=== PATIENT | male | born 1950 ===

== ENCOUNTER 2016-07-09 10:57 | Emergency (ER) | payer OTHER, MEDICAID ==
[2016-07-09 11:08] VITALS: TEMP 97.9; O2SAT 96
[2016-07-09 11:09] VITALS: BMI 27.4
--- NOTE | 2016-07-09 11:33 | ED PDOC ---
Arrival/HPI - General Chief Complaint: Chest Pain Time Seen by Provider: 07/09/16 11:03 Historian: Patient - History of Present Illness Narrative History of Present Illness (Text): 07/09/16 11:16 A 66 year old male presents to the emergency department complaining of a facial droop for the past 2 days. Patient reports he woke up with the symptoms 2 days ago. He also complaining of intermittent chest pain that has been present for "awhile now." He denies any extremity weakness, speech change, fever, shortness of breath, or any other complaints at this time. HPI and ROS limited because patient is a poor historian. PMD: Dr. Marrero Time/Duration: Other (2 days) Symptom Onset: Sudden Symptom Course: Unchanged Quality: Other Activities at Onset: Rest Context: Home Past Medical History - Provider Review Nursing Documentation Reviewed: Yes - Cardiac Hx Hypertension: Yes - Gastrointestinal Hx Gastrointestinal Disorders: Yes Hx Gastroesophageal Reflux: Yes - Psychiatric Hx Psychophysiologic Disorder: Yes Hx Depression: Yes Hx Substance Use: No - Surgical History Other/Comment: colon resection - Anesthesia Hx Anesthesia: Yes Hx Anesthesia Reactions: No Hx Malignant Hyperthermia: No Family/Social History - Physician Review Nursing Documentation Reviewed: Yes Family/Social History: Unknown Family HX Smoking Status: Heavy Smoker > 10 Cigarettes Daily Hx Alcohol Use: Yes Frequency of alcohol use: Daily Hx Substance Use: No Allergies/Home Meds Allergies/Adverse Reactions: Allergies No Known Allergies Allergy (Verified 07/09/16 11:08) Home Medications: Home Meds Medication Instructions Recorded Confirmed Docusate [Colace] 100 mg PO BID PRN 07/09/16 07/09/16 Lisinopril [Zestril] 2.5 mg PO DAILY 07/09/16 07/09/16 Loperamide HCl [Loperamide HCl] 2 mg PO DAILY PRN 07/09/16 07/09/16 Naproxen [Naprosyn] 500 mg PO BID 07/09/16 07/09/16 Omeprazole 40 mg PO DAILY 07/09/16 07/09/16 Ranitidine HCl [Sunmark Acid 150 mg PO BID 07/09/16 07/09/16 [place]] buPROPion XL [Wellbutrin] 150 mg PO DAILY 07/09/16 07/09/16 Review of Systems - Review of Systems Systems not reviewed;Unavailable: Other (poor historian) Constitutional: absent: Fevers Respiratory: absent: SOB Cardiovascular: Chest Pain Neurological: Facial Droop. absent: Focal Weakness, Speech Changes Physical Exam Vital Signs Reviewed: Yes Vital Signs Temp Pulse Pulse Resp BP BP Pulse Ox 07/09/16 12:17 77 20 107/73 96 07/09/16 11:25 75 149/105 H 07/09/16 11:07 97.9 F 79 18 149/105 H 96 Temperature: Afebrile Blood Pressure: Hypertensive Pulse: Regular Respiratory Rate: Normal Appearance: Positive for: Well-Appearing, Non-Toxic, Comfortable Pain Distress: None Mental Status: Positive for: Alert and Oriented X 3 - Systems Exam Head: Present: Atraumatic, Normocephalic Pupils: Present: PERRL Extroacular Muscles: Present: EOMI Conjunctiva: Present: Normal Ears: Present: Normal, Other (no vesicles in ears) Mouth: Present: Moist Mucous Membranes Neck: Present: Normal Range of Motion Respiratory/Chest: Present: Clear to Auscultation, Good Air Exchange. No: Respiratory Distress, Accessory Muscle Use Cardiovascular: Present: Regular Rate and Rhythm, Normal S1, S2. No: Murmurs Abdomen: Present: Normal Bowel Sounds. No: Tenderness, Distention, Peritoneal Signs Back: Present: Normal Inspection Upper Extremity: Present: Normal Inspection. No: Cyanosis, Edema Lower Extremity: Present: Normal Inspection. No: Edema Neurological: Present: GCS=15, CN II-XII Intact, Speech Normal, Motor Func Grossly Intact, Normal Sensory Function, Other (right sided facial droop with forehead sparing) Skin: Present: Warm, Dry, Normal Color. No: Rashes Psychiatric: Present: Alert, Oriented x 3, Normal Insight, Normal Concentration Medical Decision Making ED Course and Treatment: 07/09/16 11:16 Impression: A 66 year old male with a right sided facial droop. Differential Diagnosis include but are not limited to: ACS vs. kelley's palsy Plan: -- EKG -- Chest X-ray -- Labs -- Urinalysis -- Zovirax and prednisone -- Reassess and disposition Progress Notes: EKG: Ordered, reviewed, and independently interpreted the EKG. Rate : 76 BPM Rhythm : NSR Interpretation : No ST-segment elevations or depressions, no T-wave inversions, normal intervals. Comparison : No previous EKG for comparison. 07/09/16 12:17 Chest X-ray: Creator : Eder aCge MD COMPARISON: No prior. FINDINGS: LUNGS: No active pulmonary disease. PLEURA: No significant pleural effusion identified, no pneumothorax apparent. CARDIOVASCULAR: Normal. OSSEOUS STRUCTURES: No significant abnormalities. VISUALIZED UPPER ABDOMEN: Normal. OTHER FINDINGS: None. IMPRESSION: No active disease. 07/09/16 12:39 pt reassessed. pain free in er. pt in er primarily for eval of facial droop, also c/o of chest pain "for a while". ekg no changes, trop neg. pt asking for discharge. does not wish for observation in hospital. states "i am ready to go home". no weakness, only noted right sided facial droop. exam consistent with bells. 07/09/16 12:42 pt instructed about opthalmic ointment to use. - Lab Interpretations Lab Results: 07/09/16 11:45 07/09/16 11:45 Lab Results 07/09/16 11:45: WBC 7.7, RBC 4.16, Hgb 14.6, Hct 41.5 L, MCV 99.8, MCH 35.1 H, MCHC 35.2, RDW 13.5, Plt Count 248, MPV 9.8, Gran % 59.6, Lymph % (Auto) 26.6, [place] % (Auto) 8.6 H, Eos % (Auto) 4.9, Baso % (Auto) 0.3, Gran # 4.60, Lymph # 2.1, [place] # 0.7 H, Eos # 0.4, Baso # 0.02, PT 10.2, INR 0.94, APTT 27.4, Sodium 135, Potassium 4.2, Chloride 102, Carbon Dioxide 26, Anion Gap 11, BUN 14, Creatinine 0.8, Est GFR ( Amer) > 60, Est GFR (Non-Af Amer) > 60, Random Glucose 101, Calcium 8.8, Magnesium 1.7, Total Bilirubin 0.5, AST 22, ALT 32, Alkaline Phosphatase 57, Lactate Dehydrogenase 320 L, Total Creatine Kinase 115 , Troponin I < 0.01, Total Protein 7.4, Albumin 3.8, Globulin 3.6, Albumin/ Globulin Ratio 1.1 I have reviewed the lab results: Yes - RAD Interpretation Radiology Orders: 07/09/16 11:22 CHEST PORTABLE [RAD] Stat - Medication Orders Current Medication Orders: Discontinued Medications Acyclovir (Zovirax) 400 mg PO STAT STA PRN Reason: Protocol Stop: 07/09/16 11:24 Last Admin: 07/09/16 11:40 Dose: 400 MG Prednisone (Prednisone Tab) 50 mg PO STAT STA Stop: 07/09/16 11:24 Last Admin: 07/09/16 11:39 Dose: 50 MG - Scribe Statement The provider has reviewed the documentation as recorded by the Lonibe Abby Harrison Provider Scribe Attestation: All medical record entries made by the Lonibe were at my direction and personally dictated by me. I have reviewed the chart and agree that the record accurately reflects my personal performance of the history, physical exam, medical decision making, and the department course for this patient. I have also personally directed, reviewed, and agree with the discharge instructions and disposition. Disposition/Present on Arrival - Present on Arrival Any Indicators Present on Arrival: No History of DVT/PE: No History of Uncontrolled Diabetes: No Urinary Catheter: No History of Decub. Ulcer: No History Surgical Site Infection Following: None - Disposition Have Diagnosis and Disposition been Completed?: Yes Diagnosis: Kelley's palsy, Chest pain Disposition: HOME/ ROUTINE Disposition Time: 12:41 Patient Problems: Current Active Problems Problem Status Diagnosed Kelley's palsy Acute Chest pain Acute Condition: STABLE Discharge Instructions (ExitCare): Chest Pain (ED), Kelley Palsy (ED) Additional Instructions: please follow up with specialists. return to er with worsening symptoms or concerns. Prescriptions: Prednisone 50 mg PO DAILY #5 tab Acyclovir [Zovirax] 400 mg PO 5XD #35 tab Referrals: Hebert Marrero MD [Primary Care Provider] - Follow up with primary
[2016-07-09 11:56] LABS: ADD MANUAL DIFF? NO
[2016-07-09 12:09] LABS: ALB/GLOB RATIO 1.1 (1.1-1.8); ALKALINE PHOSPHATASE 57 U/L (38-133); ALT/SGPT 32 U/L (7-56); AST/SGOT 22 U/L (15-59); BILIRUBIN,TOTAL 0.5 mg/dL (0.2-1.3); BLOOD UREA NITROGEN 14 mg/dL (7-21); CALCIUM 8.8 mg/dL (8.4-10.5); CARBON DIOXIDE 26 mmol/L (21-33); CHLORIDE 102 mmol/L (98-107); GFR AFRICAN-AMERICAN > 60; GLUCOSE,RANDOM 101 mg/dL (70-110); MAGNESIUM 1.7 mg/dL (1.7-2.2); POTASSIUM 4.2 mmol/L (3.6-5.0); SODIUM 135 mmol/L (132-148); TOTAL PROTEIN 7.4 g/dL (5.8-8.3)
[2016-07-09 12:12] LABS: BASO # 0.02 K/mm3 (0.0-2.0); BASO % 0.3 % (0.0-3.0); EOS # 0.4 (0.0-0.7); EOS % 4.9 % (1.5-5.0); GRAN % 59.6 % (50.0-68.0); HEMATOCRIT 41.5 % (42.0-52.0); LYMPH # 2.1 (1.2-3.4); LYMPH % 26.6 % (22.0-35.0); MEAN CELL VOLUME 99.8 fL (80.0-105.0); MEAN CORPUSCULAR HEMOGLOBIN 35.1 pg (25.0-35.0); MEAN CORPUSCULAR HGB CONC 35.2 g/dl (31.0-37.0); MEAN PLATELET VOLUME 9.8 fl (7.0-11.0); MONO # 0.7 (0.1-0.6); MONO % 8.6 % (1.0-6.0); PLATELET COUNT 248 10^3/uL (120.0-450.0); RED CELL DISTRIBUTION WIDTH 13.5 % (11.5-14.5); WHITE BLOOD COUNT 7.7 10^3/ul (4.5-11.0)
[2016-07-09 12:17] VITALS: BP 107/73; PULSE 77; RESP 20
--- NOTE | 2016-07-09 12:17 | RAD ---
HISTORY: cp COMPARISON: No prior. FINDINGS: LUNGS: No active pulmonary disease. PLEURA: No significant pleural effusion identified, no pneumothorax apparent. CARDIOVASCULAR: Normal. OSSEOUS STRUCTURES: No significant abnormalities. VISUALIZED UPPER ABDOMEN: Normal. OTHER FINDINGS: None. IMPRESSION: No active disease.
[2016-07-09 12:22] LABS: TROPONIN I < 0.01 ng/mL
[2016-07-09 12:30] LABS: INR 0.94 (0.93-1.08); PARTIAL THROMBOPLASTIN TIME 27.4 Seconds (23.7-30.8)
--- NOTE | 2016-07-09 13:41 | CARD ---
APPROVED REPORT EKG Measurement Heart [id number] <Conclusion> Normal sinus rhythm Normal ECG
== END 2016-07-09 12:46 | disposition home or self-care (01) ==
LOC: MERGE 10:57 → ED 10:57
DX: G51.0 Bell's palsy (principal); R07.9 Chest pain, unspecified; I10 Essential (primary) hypertension; K21.9 Gastro-esophageal reflux disease without esophagitis; F17.210 Nicotine dependence, cigarettes, uncomplicated
CPT/HCPCS: 71010; 80053; 82550; 83615; 83735; 84484; 85025; 85610; 85730; 93005; 99283; J8499

== ENCOUNTER 2017-07-25 09:29 | Emergency (ER) | payer MEDICAID, OTHER ==
[2017-07-25 10:14] VITALS: BMI 30.7
[2017-07-25 10:19] VITALS: RESP 18; TEMP 97.5
[2017-07-25] MEDS ORDERED: Iohexol 240 (50 ml) ONE (10:34)
--- NOTE | 2017-07-25 10:45 | ED PDOC ---
Arrival/HPI - General Chief Complaint: Abdominal Pain Time Seen by Provider: 07/25/17 10:30 Historian: Patient - History of Present Illness Narrative History of Present Illness (Text): 07/25/17 10:42 67yo male with PMHx of hypertension who present with complaint of left sided abdominal pain. He reports history of diarrhea that lasted from Saturday to yesterday. +Nausea. denies vomiting, fever, chills, urinary symptoms, constipation, chest pain, melena, hematemesis, any other complaint. Past Medical History - Provider Review Nursing Documentation Reviewed: Yes - Cardiac Hx Hypertension: Yes - Pulmonary Hx Respiratory Disorders: Yes (SOB, 40 YRS SMOKER) Hx Asthma: Yes - Neurological Hx Neurological Disorder: No - HEENT Hx HEENT Disorder: No - Renal Hx Renal Disorder: No - Endocrine/Metabolic Hx Endocrine Disorders: No - Hematological/Oncological Hx Blood Disorders: No - Integumentary Hx Dermatological Disorder: No - Musculoskeletal/Rheumatological Hx Musculoskeletal Disorders: Yes Hx Arthritis: Yes - Gastrointestinal Hx Gastrointestinal Disorders: Yes Hx Gastroesophageal Reflux: Yes - Genitourinary/Gynecological Hx Genitourinary Disorders: Yes Hx Prostate Problems: Yes - Psychiatric Hx Psychophysiologic Disorder: Yes Hx Depression: Yes Hx Substance Use: No - Surgical History Other/Comment: colon resection - Anesthesia Hx Anesthesia: Yes Hx Anesthesia Reactions: No Hx Malignant Hyperthermia: No Family/Social History - Physician Review Nursing Documentation Reviewed: Yes Family/Social History: Unknown Family HX Smoking Status: Light Smoker < 10 Cigarettes Daily Hx Alcohol Use: Yes Frequency of alcohol use: Socially Hx Substance Use: No Allergies/Home Meds Allergies/Adverse Reactions: Allergies No Known Allergies Allergy (Verified 07/25/17 10:13) Home Medications: Home Meds Medication Instructions Recorded Confirmed Bupropion HCl [Bupropion HCl Xl] 150 mg PO DAILY 06/21/15 01/18/16 Lisinopril [Zestril] 5 mg PO DAILY 06/21/15 01/18/16 Nicotine Polacrilex [Nicorelief] 2 mg PO DAILY 06/21/15 01/18/16 traZODone [trazODONE HYDROCHLORIDE] 50 mg PO DAILY 06/21/15 01/18/16 Docusate [Colace] 100 mg PO BID PRN 07/09/16 07/09/16 Lisinopril [Zestril] 2.5 mg PO DAILY 07/09/16 07/09/16 Loperamide HCl [Loperamide HCl] 2 mg PO DAILY PRN 07/09/16 07/09/16 Naproxen [Naprosyn] 500 mg PO BID 07/09/16 07/09/16 Omeprazole 40 mg PO DAILY 07/09/16 07/09/16 Ranitidine HCl [Sunmark Acid 150 mg PO BID 07/09/16 07/09/16 [facility]] buPROPion XL [Wellbutrin] 150 mg PO DAILY 07/09/16 07/09/16 Review of Systems - Physician Review All systems were reviewed & negative as marked: Yes - Review of Systems Constitutional: Normal Eyes: Normal ENT: Normal Respiratory: Normal Cardiovascular: Normal Gastrointestinal: Abdominal Pain, Nausea. absent: Constipation, Diarrhea, Vomiting, Hematochezia, Hematemesis Genitourinary Male: Normal Musculoskeletal: Normal Skin: Normal Neurological: Normal Endocrine: Normal Hemo/Lymphatic: Normal Psychiatric: Normal Physical Exam Vital Signs Reviewed: Yes Vital Signs Temp Pulse Resp BP Pulse Ox 07/25/17 13:35 88 18 132/78 96 07/25/17 10:16 97.5 F L 85 18 94/52 L 93 L Temperature: Afebrile Blood Pressure: Normal Pulse: Regular Respiratory Rate: Normal Appearance: Positive for: Well-Appearing, Non-Toxic, Comfortable Pain Distress: None Mental Status: Positive for: Alert and Oriented X 3 - Systems Exam Head: Present: Atraumatic, Normocephalic Pupils: Present: PERRL Extroacular Muscles: Present: EOMI Conjunctiva: Present: Normal Mouth: Present: Moist Mucous Membranes Neck: Present: Normal Range of Motion Respiratory/Chest: Present: Clear to Auscultation, Good Air Exchange. No: Respiratory Distress, Accessory Muscle Use Cardiovascular: Present: Regular Rate and Rhythm, Normal S1, S2. No: Murmurs Abdomen: Present: Tenderness (Diffuse left abdomen), Guarding (Voluntary), Other (soft). No: Distention, Peritoneal Signs, Rebound, McBurney's Point Tender, Rovsing's Sign Present Back: Present: Normal Inspection Upper Extremity: Present: Normal Inspection. No: Cyanosis, Edema Lower Extremity: Present: Normal Inspection. No: Edema Neurological: Present: GCS=15, CN II-XII Intact, Speech Normal Skin: Present: Warm, Dry, Normal Color. No: Rashes Psychiatric: Present: Alert, Oriented x 3, Normal Insight, Normal Concentration Medical Decision Making ED Course and Treatment: 07/25/17 18:16 PT in ED for stated history. His lab was unremarkable Abdominal/Pelvic CT IMPRESSION: There is diverticulosis of the sigmoid and descending colon with mural thickening and multiple diverticula. There is no evidence of diverticulitis On re evaluation he states his pain resolved with the medication in ED. Result was DW the pt. his pain was reproducible in ED. He was DC home with Ibuprofen and flexeril for MS pain. - Lab Interpretations Lab Results: 07/25/17 11:10 07/25/17 11:10 Lab Results 07/25/17 12:18: Urine Color Yellow, Urine Appearance Clear, Urine pH 6.5, Ur Specific [place] 1.010, Urine Protein Negative, Urine Glucose (UA) Negative, Urine Ketones Negative, Urine Blood Negative, Urine Nitrate Negative, Urine Bilirubin Negative, Urine Urobilinogen 0.2, Ur Leukocyte Esterase Trace H, Urine RBC 0 - 2, Urine WBC 1 - 3, Ur Epithelial Cells 0 - 2, Urine Bacteria Few 07/25/17 11:10: pO2 35, VBG pH 7.32, VBG pCO2 58.0, VBG HCO3 29.9 H, VBG Total CO2 31.7 H, VBG O2 Sat (Calc) 75.6 H, VBG Base Excess 2.2 H, VBG Potassium 3.9, Sodium 138.0, Chloride 104.0, Glucose 119 H, Lactate 1.1, FiO2 21.0, Venous Blood Potassium 3.9 07/25/17 11:10: Sodium 143, Chloride 103, Potassium 3.9, Carbon Dioxide 31, Anion Gap 13, BUN 16, Creatinine 0.9, Est GFR ( Amer) > 60, Est GFR (Non- Af Amer) > 60, Random Glucose 119 H, Calcium 9.6, Total Bilirubin 0.5, AST 25, ALT 29, Alkaline Phosphatase 62, Lactate Dehydrogenase 358, Total Creatine Kinase 111, Troponin I < 0.01, Total Protein 7.7, Albumin 4.5, Globulin 3.2, Albumin/Globulin Ratio 1.4, Amylase 84, Lipase 168 07/25/17 11:10: PT 11.5, INR 1.00, APTT 27.3 07/25/17 11:10: WBC 9.0, RBC 4.28, Hgb 14.7, Hct 42.7, MCV 99.8, MCH 34.3, MCHC 34.4, RDW 14.0, Plt Count 232, MPV 9.7, Gran % 65.5, Lymph % (Auto) 21.7 L, [place] % (Auto) 8.6 H, Eos % (Auto) 4.0, Baso % (Auto) 0.2, Gran # 5.90, Lymph # ( Auto) 2.0, [place] # (Auto) 0.8 H, Eos # (Auto) 0.4, Baso # (Auto) 0.02 - RAD Interpretation Radiology Orders: 07/25/17 10:30 ABD PELVIS PO & IV CONTRAST [CT] Stat - Medication Orders Current Medication Orders: Discontinued Medications Cephalexin Monohydrate (Keflex) 500 mg PO STAT STA PRN Reason: Protocol Stop: 07/25/17 13:19 Last Admin: 07/25/17 13:40 Dose: 500 mg Famotidine (Pepcid) 20 mg IVP STAT STA Stop: 07/25/17 10:31 Last Admin: 07/25/17 10:51 Dose: 20 mg IVP Administration Document 07/25/17 10:51 EQ (Rec: 07/25/17 10:51 EQ [id number]) Charges for Administration # of IVP Administrations 1 Ondansetron HCl (Zofran Inj) 4 mg IVP STAT STA Stop: 07/25/17 10:31 Last Admin: 07/25/17 10:51 Dose: 4 mg IVP Administration Document 07/25/17 10:51 EQ (Rec: 07/25/17 10:51 EQ [id number]) Charges for Administration # of IVP Administrations 1 Disposition/Present on Arrival - Present on Arrival Any Indicators Present on Arrival: No History of DVT/PE: No History of Uncontrolled Diabetes: No Urinary Catheter: No History of Decub. Ulcer: No History Surgical Site Infection Following: None - Disposition Have Diagnosis and Disposition been Completed?: Yes Diagnosis: UTI (urinary tract infection), Diverticulosis Disposition: HOME/ ROUTINE Disposition Time: 13:20 Patient Plan: Discharge Condition: STABLE Discharge Instructions (ExitCare): Urinary Tract Infections in Adults Additional Instructions: Follow up with your doctor/Delivery Nurse Return to ED for any new or worsening symptoms Prescriptions: Cephalexin [Keflex] 500 mg PO TID #21 capsule Ranitidine HCl [Zantac] 150 mg PO DAILY #20 tablet Referrals: Iman Marrero MD [Primary Care Provider] - Follow up with primary Forms: [employer] (H[place]ian)
[2017-07-25 11:15] LABS: BASO # 0.02 K/mm3 (0.0-2.0); BASO % 0.2 % (0.0-3.0); EOS # 0.4 (0.0-0.7); GRAN # 5.9 (1.4-6.5); GRAN % 65.5 % (50.0-68.0); HEMOGLOBIN 14.7 g/dL (14.0-18.0); LYMPH % 21.7 % (22.0-35.0); MEAN CELL VOLUME 99.8 fl (80.0-105.0); MEAN CORPUSCULAR HEMOGLOBIN 34.3 pg (25.0-35.0); MEAN CORPUSCULAR HGB CONC 34.4 g/dl (31.0-37.0); MEAN PLATELET VOLUME 9.7 fl (7.0-11.0); MONO # 0.8 (0.1-0.6); MONO % 8.6 % (1.0-6.0); RBC 4.28 10^6/uL (3.5-6.1)
[2017-07-25 11:17] LABS: VENOUS BLOOD GAS BASE EXCESS 2.2 mmol/L (0.0-2.0); VENOUS BLOOD GAS PO2 35 mm/Hg (30-55); VENOUS BLOOD PH 7.32 (7.32-7.43)
[2017-07-25 11:28] LABS: ALB/GLOB RATIO 1.4 (1.1-1.8); ALBUMIN 4.5 g/dL (3.0-4.8); ALT/SGPT 29 U/L (7-56); AMYLASE 84 U/L (35-125); AST/SGOT 25 U/L (17-59); BLOOD UREA NITROGEN 16 mg/dL (7-21); CALCIUM 9.6 mg/dL (8.4-10.5); GFR AFRICAN-AMERICAN > 60; GFR NON-AFRICAN AMERICAN > 60; LIPASE 168 U/L (23-300)
[2017-07-25 11:39] LABS: PROTHROMBIN TIME 11.5 SECONDS (9.4-12.5); TROPONIN I < 0.01 ng/mL
[2017-07-25 11:40] LABS: PARTIAL THROMBOPLASTIN TIME 27.3 Seconds (25.1-36.5)
[2017-07-25 12:24] LABS: PH,URINE 6.5 (4.7-8.0); URINE BILIRUBIN NEGATIVE (NEGATIVE); URINE BLOOD NEGATIVE (NEGATIVE); URINE GLUCOSE (UA) NEGATIVE (NEGATIVE); URINE LEUKOCYTE ESTERASE TRACE Leu/uL (NEGATIVE); URINE PROTEIN NEGATIVE mg/dL (<30 mg/dL); URINE UROBILINOGEN 0.2 E.U./dL (<1 E.U./dL)
[2017-07-25 12:25] LABS: URINE APPEARANCE CLEAR (CLEAR); URINE COLOR YELLOW (YELLOW)
[2017-07-25 12:38] LABS: URINE BACTERIA FEW (NEG); URINE EPITHELIAL CELLS 0 - 2 /hpf (0-5); URINE RBC 0 - 2 /hpf (0-2)
--- NOTE | 2017-07-25 12:55 | CT ---
PROCEDURE: CT Abdomen and Pelvis with contrast HISTORY: Left sided abdominal pain COMPARISON: None. TECHNIQUE: Contrast dose: 100 cc of Omni 350 Radiation dose: Total exam DLP = 774 mGy-cm. This CT exam was performed using one or more of the following dose reduction techniques: Automated exposure control, adjustment of the mA and/or kV according to patient size, and/or use of iterative reconstruction technique. FINDINGS: LOWER THORAX: Unremarkable. LIVER: Unremarkable. No gross lesion or ductal dilatation. GALLBLADDER AND BILE DUCTS: Unremarkable. PANCREAS: Unremarkable. No gross lesion or ductal dilatation. SPLEEN: Unremarkable. ADRENALS: Unremarkable. No mass. KIDNEYS AND URETERS: Unremarkable. No hydronephrosis. No solid mass. VASCULATURE: Unremarkable. No aortic aneurysm. BOWEL: There is diverticulosis of the sigmoid and descending colon with mural thickening and multiple diverticula. There is no evidence of diverticulitis APPENDIX: Normal appendix. PERITONEUM: Unremarkable. No free fluid. No free air. LYMPH NODES: Unremarkable. No enlarged lymph nodes. BLADDER: Unremarkable. REPRODUCTIVE: Unremarkable. BONES: No acute fracture. OTHER FINDINGS: None. IMPRESSION: There is diverticulosis of the sigmoid and descending colon with mural thickening and multiple diverticula. There is no evidence of diverticulitis
[2017-07-25 13:36] VITALS: BP 132/78; PULSE 88; O2SAT 96
== END 2017-07-25 13:44 | disposition home or self-care (01) ==
LOC: ED 09:29
DX: N39.0 Urinary tract infection, site not specified (principal); K57.30 Diverticulosis of large intestine without perforation or abscess without bleeding; I10 Essential (primary) hypertension; F17.210 Nicotine dependence, cigarettes, uncomplicated
CPT/HCPCS: 74177; 80053; 81001; 82150; 82550; 82803; 83615; 83690; 84484; 85025; 85610; 85730; 87040; 87086; 96374; 96375; 99283; J2405; Q9966